=== PATIENT | female | born 1985 | race Caucasian/White ===

== ENCOUNTER 2016-08-04 16:24 | Emergency (ER) | payer OTHER ==
[2016-08-04 16:38] VITALS: BP 150/92
--- NOTE | 2016-08-04 17:16 | PCM.SN ---
- Free Text/Narrative Note: 30 -year-old 001 EGD 01/12/17 estimated gestational age 17 weeks 0 days presented to emergency room complaining of some pelvic pressure and even something coming out of the vagina. No vaginal bleeding or gush of fluid some leaking of fluid no contractions patient known to have twin gestation examination revealed inflamed skin tag at the midline at the introitus just inside the vagina measuring approximately 1 x 1 x 1 cm tender the vaginal exam showed no increased vaginal secretions no evidence of ruptured membranes no hour glassing of membranes cervix is closed and long firm posterior. heart tones 143 and 152 uterus is soft Z3A.17 Twin gestation O30. 042 Pelvic pressure O26.899 Skin tag inflamed L91.8 Pelvic rest Hemorrhoidal cream with steroid (hydrocortisone) applied 3 times a day to 4 times a day Keep appointment later this week for OB visit on Thursday. Pelvic ultrasound ordered to confirm no funneling of the cervix UA with micro- and urine culture ordered Drink at least 2 quarts of water per day Return to ER if any problems or difficulties or change in symptoms ER Dr. Saldaña Will confirm ultrasound report and call if any problems or difficulties
--- NOTE | 2016-08-04 18:46 | US ---
Addendum: Several numerical values are incorrect. Following is the correct values. Twin A: Amniotic fluid: NNEKA 9.87 cm Twin B: NNEKA 9.99 cm Twin A: Head circumference: 13.34 cm - 17 weeks 0 days Abdominal circumference: 11.78 cm - 17 weeks 4 days Femur length: 2.41 cm - 17 weeks 2 days Twin B: Heart rate: 149 BPM Other portions of the dictation remain the same. --- Addendum1 above dictated on [08/07/2016 14:27] by [Ann Monk, George Fine] --- --- Addendum1 above signed on [08/07/2016 14:32] by [Ann Monk Hilton J.] --- --- Original report below dictated on [08/04/2016 18:43] by [Ann Monk Hilton J.] --- --- Original report below signed on [08/04/2016 18:43] by [Ann Monk, George Fine] --- Limited obstetrical ultrasound (multiple gestation) Comparison: Previous obstetrical ultrasound of 06/24/16. Dates: LMP: LMP given as 04/04/16, ESTEPHANIA 01/09/17, gestational age 17 weeks 3 days Current ultrasound: Twin A: ESTEPHANIA 01/10/17, gestational age 17 weeks 2 days Twin B: ESTEPHANIA 01/11/17, gestational age 17 weeks 1 day Earliest ultrasound (06/24/16): Twin A: ESTEPHANIA 01/12/17, gestational age 17 weeks 0 days Twin B: ESTEPHANIA 01/12/17, gestational age 17 weeks 0 days Twin A: presentation: Cephalic and to the maternal right side Placenta: Posterior Amniotic fluid: NNEKA 9.87 cm Twin B: presentation: Cephalic and to the maternal left side Placenta: Posterior Amniotic fluid: NNEKA 9.87 cm There is a membrane appearing to be present between both fetuses which is felt compatible with separate amniotic sacs. Measurements: Twin A: BPD: 3.50 cm - 16 weeks 6 days Head circumference: 13.31 cm - 16 weeks 6 days Abdominal circumference: 11.74 cm - 17 weeks 4 days Femur length: 2.37 cm - 17 weeks 1 day Estimated weight: 190 g (0 lbs. 7 oz.), estimated weight at the 47th percentile for age by current ultrasound Heart rate: 153 BPM Twin B: BPD: 3.50 cm - 16 weeks 6 days Head circumference: 13.31 cm - 16 weeks 6 days Abdominal circumference: 11.74 cm - 17 weeks 4 days Femur length: 2.37 cm - 17 weeks 1 day Estimated weight: 187 g (0 lbs. 7 oz.), estimated weight at the 51st percentile for age by current ultrasound Cervical length: 5.0 cm and closed Impression: 1. Twin both in cephalic presentation. Twins appear to be in separate amniotic sacs. Placenta for both twins is posterior with likely fusion of the placenta as no separation can be seen. 2. Dates as noted above. 3. No complicating process is otherwise appreciated by ultrasound exam. Diagnostic code #3 --- Addendum1 signed ---
== END 2016-08-04 19:00 | disposition home or self-care (01) ==
LOC: JD.ED 16:24
DX: O26.899 Other specified pregnancy related conditions, unspecified trimester (principal); R10.2 Pelvic and perineal pain; O30.042 Twin pregnancy, dichorionic/diamniotic, second trimester; O99.89 Other specified diseases and conditions complicating pregnancy, childbirth and the puerperium; L91.8 Other hypertrophic disorders of the skin; Z3A.17 17 weeks gestation of pregnancy
CPT/HCPCS: 76815; 76815-26; 81001; 87086; 99284-25

== ENCOUNTER 2016-12-18 13:04 | Inpatient (IN) | payer OTHER ==
[2016-12-18] MEDS ORDERED: Nalbuphine 20 MG/1 ML Amp IVPUSH PRN (19:00)
[2016-12-18] MEDS ORDERED: Sodium Chloride 0.9% 10 ML Syringe FLUSH PRN (19:00)
[2016-12-18] MEDS ORDERED: Ondansetron 4 MG/2 ML SDV IVPUSH PRN (19:00)
[2016-12-18] MEDS ORDERED: Insulin Detemir 100 Units/ML 3 ML Pen SUBCUT ONE (20:59)
[2016-12-18] MEDS: Dextrose 5% in Water 1,000 ML IV SCH (21:57)
[2016-12-18] MEDS: Lactated Ringers 1,000 ML IV SCH (21:58)
[2016-12-18] MEDS ORDERED: Insulin Glargine,Human Rec. Analog 100 Units/ML 3 ML Pen**OWN MED SUBCUT ONE (22:00)
[2016-12-18] MEDS: Misoprostol 25 MCG (1/4 of 100 MCG) Tab VAG SCH (23:56)
[2016-12-19] MEDS ORDERED: Lidocaine 1% 50 ML MDV INJECT ONE
[2016-12-19] MEDS: Misoprostol 25 MCG (1/4 of 100 MCG) Tab VAG SCH ×2 (03:04→06:17)
[2016-12-19] MEDS ORDERED: diphenhydrAMINE 50 MG/ML SDV IVPUSH PRN (07:32)
[2016-12-19] MEDS ORDERED: ePHEDrine 50 MG/ML SDV IVPUSH PRN (07:32)
[2016-12-19] MEDS ORDERED: fentaNYL 100 MCG/2 ML SDV EPIDUR PRN (07:32)
[2016-12-19] MEDS ORDERED: Bupivacaine/fentaNYL/NS 100 ML Bag EPIDUR SCH (07:45)
--- NOTE | 2016-12-19 07:46 | PCM.PREANE ---
Preanesthetic Assessment - Procedure Proposed Procedure: MATT - Anesthesia/Transfusion/Family Hx Anesthesia History: Prior Anesthesia Without Reaction Family History of Anesthesia Reaction: No Transfusion History: No Prior Transfusion(s) - Review of Systems General: No Symptoms Pulmonary: No Symptoms Cardiovascular: No Symptoms Gastrointestinal: No Symptoms Neurological: No Symptoms Other: Reports: Diabetes (gestational) - Physical Assessment Pulse: 76 O2 Sat by Pulse Oximetry: 100 Respiratory Rate: 20 Blood Pressure: 137/83 Height: 5 ft 8 in Weight: 124.284 kg ASA Class: 2 Mental Status: Alert & Oriented x3 Airway Class: Mallampati = 1 Dentition: Reports: Normal Dentition Thyro-Mental Finger Breadths: 3 Mouth Opening Finger Breadths: 3 ROM/Head Extension: Full Lungs: Clear to Auscultation, Normal Respiratory Effort Cardiovascular: Regular Rate, Regular Rhythm - Lab Values: Laboratory Last Values WBC 9.43 K/mm3 (3.98-10.04) 12/18/16 21:50 RBC 3.81 M/mm3 (3.98-5.22) L 12/18/16 21:50 Hgb 12.1 gm/L (11.2-15.7) 12/18/16 21:50 Hct 36.5 % (34.1-44.9) 12/18/16 21:50 MCV 95.8 fl (79.4-94.8) H 12/18/16 21:50 MCH 31.8 pg (25.6-32.2) 12/18/16 21:50 MCHC 33.2 g/dl (32.2-35.5) 12/18/16 21:50 RDW Std Deviation 43.6 fL (36.4-46.3) 12/18/16 21:50 Plt Count 223 K/mm3 (182-369) 12/18/16 21:50 MPV 10.4 fl (9.4-12.3) 12/18/16 21:50 POC Glucose 79 mg/dL (70-105) 12/19/16 07:20 Blood Type O POSITIVE 12/18/16 21:50 Gel Antibody Screen Negative 12/18/16 21:50 - Allergies Allergies/Adverse Reactions: Allergies Allergy/AdvReac Type Severity Reaction Status Date / Time Penicillins Allergy Mild Rash Verified 12/18/16 17:19 Sulfa (Sulfonamide Allergy Mild Rash Verified 12/18/16 17:19 Antibiotics) amoxicillin Allergy Rash Verified 12/18/16 17:19 - Acknowledgements Anesthesia Type Planned: Epidural Pt an Appropriate Candidate for the Planned Anesthesia: Yes Alternatives and Risks of Anesthesia Discussed w Pt/Guardian: Yes Pt/Guardian Understands and Agrees with Anesthesia Plan: Yes PreAnesthesia Questionnaire - Past Health History Medical/Surgical History: Denies Medical/Surgical History Cardiovascular History: Reports: None Respiratory History: Reports: None Gastrointestinal History: Reports: GERD (with ) 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 (36 4) Para: 1 Other OB/BYN History: Bartholin Cyst removal x 2 2007, 2011 Endocrine/Metabolic History: Reports: Diabetes, Gestational - Past Surgical History HEENT Surgical History: Reports: Oral Surgery, Tonsillectomy Female Surgical History: Reports: Other (See Below) (barthoid gland removed) Endocrine Surgical History: Reports: Other (See Below) Other Endocrine Surgeries/Procedures: thyomus gland removal - History Comment History Comment: sliding scale insulin - SUBSTANCE USE Smoking Status *Q: Never Smoker Tobacco Use Within Last Twelve Months: No Second Hand Smoke Exposure: No Number of Drinks Per Day: 0 Recreational Drug Use History: No - HOME MEDS Home Medications: Home Meds Vit No.124/Iron/FA [ Vitamin Tablet] 1 each PO DAILY 07/01/15 [ History] Acetaminophen [Tylenol] 650 mg PO Q4H PRN #0 tablet 07/02/15 [Rx] Nitrofurantoin Monohyd/M-Cryst [Macrobid 100 mg Capsule] 100 mg PO BID #20 capsule 12/08/16 [Rx] Loratadine/Pseudoephedrine [Claritin-D 24 Hour Tablet] 1 each PO 12/17/16 [ History] Omeprazole Magnesium [Prilosec Otc] 20 mg PO 12/17/16 [History] - CURRENT (IN HOUSE) MEDS Current Meds: Current Medications Diphenhydramine HCl (Benadryl) 25 mg IVPUSH Q6H PRN PRN Reason: pruritis Ephedrine Sulfate (Ephedrine Sulfate) 5 mg IVPUSH ASDIRECTED PRN PRN Reason: Hypotension Fentanyl (Sublimaze) 100 mcg EPIDUR Q3H PRN PRN Reason: Pain Fentanyl/Bupivacaine HCl (Fentanyl/Bupivacaine/Ns 2 Mcg-0.125% 100 Ml) 100 ml EPIDUR ASDIRECTED ELHAM Dextrose/Water (Dextrose 5% In Water) 1,000 mls @ 100 mls/hr IV ASDIRECTED ELHAM Last Admin: 12/18/16 21:57 Dose: 100 mls/hr Insulin Human Regular 100 unit (/ Sodium Chloride) 100 mls @ 0.5 mls/hr IV TITRATE ELHAM; 0.5 UNIT/HR PRN Reason: Protocol Last Titration: 12/19/16 07:21 Dose: 0 unit/hr, 0 mls/hr Lactated Ringer's (Ringers, Lactated) 1,000 mls @ 50 mls/hr IV ASDIRECTED ELHAM Last Admin: 12/18/16 21:58 Dose: 50 mls/hr Oxytocin 20 unit/ Lactated (Ringer's) 1,002 mls @ 6.01 mls/hr IV TITRATE ELHAM; 2 MUNITS/MIN PRN Reason: Protocol Nalbuphine HCl (Nubain) 10 mg IVPUSH Q2H PRN PRN Reason: Pain (moderate 4-6) Ondansetron HCl (Zofran) 4 mg IVPUSH Q4H PRN PRN Reason: Nausea/Vomiting Sodium Chloride (Saline Flush) 10 ml FLUSH ASDIRECTED PRN PRN Reason: Keep Vein Open Discontinued Medications Oxytocin 20 unit/ Lactated (Ringer's) 1,002 mls @ 500 mls/hr IV ASDIRECTED ONE Stop: 12/18/16 21:00 Insulin Glargine (Lantus Solostar) 12 units SUBCUT ONETIME ONE Stop: 12/18/16 22:01 Last Admin: 12/18/16 22:05 Dose: 12 unit Lidocaine HCl (Xylocaine 1%) 50 ml INJECT ONETIME ONE Stop: 12/19/16 00:01 Misoprostol (Cytotec) 25 mcg VAG Q3H ELHAM Stop: 12/19/16 06:01 Last Admin: 12/19/16 06:17 Dose: 25 mcg
[2016-12-19] MEDS: Lactated Ringers 1,000 ML IV SCH (07:56)
[2016-12-19] MEDS: Dextrose 5% in Water 1,000 ML IV SCH (08:50)
--- NOTE | 2016-12-19 10:18 | PCM.LDHP ---
L&D History of Present Illness - General Date of Service: 12/19/16 Admit Problem/Dx: Patient Status Order with Admit Dx/Problem 12/18/16 19:00 Patient Status [ADT] Routine Admission Diagnosis/Problem Admission Diagnosis/Problem Twin Source of Information: Patient History Limitations: Reports: No Limitations - History of Present Illness Introduction:: 31-year-old 001 ESTEPHANIA 01/12/17 at 36 weeks and 4 days estimated gestational age with history of monochorionic/diamniotic twins both cephalic presentation GBS negative patient admitted for medically indicated induction. I have presents to case to Dr. Lay, Dr. Sellers, Dr. Miller and are in agreement with proceeding with delivery because of the monochorionic diamnionic twins. Patient and aware of relative early term gestation possible breathing problems patient has gestational diabetic on insulin now on insulin drip amniotomy performed at 1008 hrs. with clear fluid cervix 4 cm dilated -1-2 vertex presentation soft posterior 60% efface. Category 1 heart rates before and after amniotomy. Blood type O-positive antibody screen negative hemoglobin hematocrit on 06/24/1712.5/40.3 platelets 288,000 units rubella titer the patient has also had problems with gestational hypertension and 24-hour urine showed 279 mg of protein per 24 hours patient had in the past 48 hours developed severe headache unrelenting and not relieved by hydration and Tylenol. Admitted for medically indicated induction and delivery patient and aware of possibility of for one or both deliveries. Pain Score: 5 Improves with: Reports: None Worsens with: Reports: None Associated Symptoms: Reports: N - Related Data Allergies/Adverse Reactions: Allergies Allergy/AdvReac Type Severity Reaction Status Date / Time Penicillins Allergy Mild Rash Verified 12/18/16 17:19 Sulfa (Sulfonamide Allergy Mild Rash Verified 12/18/16 17:19 Antibiotics) amoxicillin Allergy Rash Verified 12/18/16 17:19 Home Medications: Home Meds Vit No.124/Iron/FA [ Vitamin Tablet] 1 each PO DAILY 07/01/15 [ History] Acetaminophen [Tylenol] 650 mg PO Q4H PRN #0 tablet 07/02/15 [Rx] Nitrofurantoin Monohyd/M-Cryst [Macrobid 100 mg Capsule] 100 mg PO BID #20 capsule 12/08/16 [Rx] Loratadine/Pseudoephedrine [Claritin-D 24 Hour Tablet] 1 each PO 12/17/16 [ History] Omeprazole Magnesium [Prilosec Otc] 20 mg PO 12/17/16 [History] Past Medical History - Past Health History Medical/Surgical History: Denies Medical/Surgical History Cardiovascular History: Reports: None Respiratory History: Reports: None Gastrointestinal History: Reports: GERD (with ) 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 Para: 1 (1001) Other OB/BYN History: Bartholin Cyst removal x 2 2007, 2011 Endocrine/Metabolic History: Reports: Diabetes, Gestational - Past Surgical History HEENT Surgical History: Reports: Oral Surgery, Tonsillectomy Female Surgical History: Reports: Other (See Below) (barthoid gland removed) Endocrine Surgical History: Reports: Other (See Below) Other Endocrine Surgeries/Procedures: thyomus gland removal - History Comment History Comment: sliding scale insulin Social & Family History - Family History Family Medical History: Noncontributory Cardiac: Reports: Other (See Below) Endocrine/Metabolic: Reports: Hypothyroidism - Tobacco Use Smoking Status *Q: Never Smoker Second Hand Smoke Exposure: No - Caffeine Use Caffeine Use: Reports: Coffee - Alcohol Use Number of Drinks Per Day: 0 - Recreational Drug Use Recreational Drug Use: No - Living Situation & Occupation Living situation: Reports: , with Family Occupation: Employed H&P Review of Systems - Review of Systems: Review Of Systems: See Below General: Reports: No Symptoms HEENT: Reports: No Symptoms Pulmonary: Reports: No Symptoms Cardiovascular: Reports: No Symptoms Gastrointestinal: Reports: No Symptoms Genitourinary: Reports: No Symptoms Musculoskeletal: Reports: No Symptoms Skin: Reports: No Symptoms Psychiatric: Reports: No Symptoms Neurological: Reports: No Symptoms Hematologic/Lymphatic: Reports: No Symptoms Immunologic: Reports: No Symptoms L&D Exam - Exam Exam: See Below - Vital Signs Vital Signs: Last Vital Signs Temp Pulse 76 12/19/16 07:46 Resp 20 12/19/16 07:46 BP 137/83 12/19/16 07:46 Pulse Ox 100 12/19/16 07:46 Weight: 274 lb - OB Specific Fundal Height In cm: 44 Contraction Intensity: Moderate Movement: Active Heart Tones: Present Heart Tones per Min: 140 (Twin A) Heart Rate (FHR) Variability: Moderate (6-25 bmp) Presentation: Vertex - Matute Score Matute Score Cervix Position: Posterior Matute Score Consistency: Soft Matute Score Effacement: 51-70% Matute Score Dilation: 3-4 cm Matute Score 's Station: -1 ,0 Matute Score Total: 8 - Exam General: Alert, Oriented HEENT: Conjunctiva Clear, Mucosa Moist & Makena, Posterior Pharynx Clear, TMs Clear, PERRLA Neck: Supple, Trachea Midline Lungs: Clear to Auscultation, Normal Respiratory Effort Cardiovascular: Regular Rate, Regular Rhythm GI/Abdominal Exam: Normal Bowel Sounds, Soft, Non-Tender, No Organomegaly, No Distention, No Abnormal Bruit, No Mass, Pelvis Stable Genitourinary: Normal external exam, Normal bimanual exam, Normal speculum exam Back Exam: Normal Inspection, Full Range of Motion Extremities: Normal Inspection, Normal Range of Motion, Non-Tender, No Pedal Edema, Normal Capillary Refill Skin: Warm, Dry, Intact Neurological: Cranial Nerves Intact, Reflexes Equal Bilateral Psychiatric: Alert, Normal Affect, Normal Mood - Patient Data Lab Results Last 24 hrs: Laboratory Results - last 24 hr 12/18/16 12/18/16 12/18/16 Range/Units 20:50 21:50 21:50 WBC 9.43 (3.98-10.04) K/mm3 RBC 3.81 L (3.98-5.22) M/mm3 Hgb 12.1 (11.2-15.7) gm/L Hct 36.5 (34.1-44.9) % MCV 95.8 H (79.4-94.8) fl MCH 31.8 (25.6-32.2) pg MCHC 33.2 (32.2-35.5) g/dl RDW Std Deviation 43.6 (36.4-46.3) fL Plt Count 223 (182-369) K/mm3 MPV 10.4 (9.4-12.3) fl POC Glucose 98 (70-105) mg/dL Blood Type O POSITIVE Gel Antibody Screen Negative 12/18/16 12/18/16 12/19/16 Range/Units 22:40 23:42 00:39 WBC (3.98-10.04) K/mm3 RBC (3.98-5.22) M/mm3 Hgb (11.2-15.7) gm/L Hct (34.1-44.9) % MCV (79.4-94.8) fl MCH (25.6-32.2) pg MCHC (32.2-35.5) g/dl RDW Std Deviation (36.4-46.3) fL Plt Count (182-369) K/mm3 MPV (9.4-12.3) fl POC Glucose 85 84 89 (70-105) mg/dL Blood Type Gel Antibody Screen 12/19/16 12/19/16 12/19/16 Range/Units 01:48 02:44 04:26 WBC (3.98-10.04) K/mm3 RBC (3.98-5.22) M/mm3 Hgb (11.2-15.7) gm/L Hct (34.1-44.9) % MCV (79.4-94.8) fl MCH (25.6-32.2) pg MCHC (32.2-35.5) g/dl RDW Std Deviation (36.4-46.3) fL Plt Count (182-369) K/mm3 MPV (9.4-12.3) fl POC Glucose 81 84 81 (70-105) mg/dL Blood Type Gel Antibody Screen 12/19/16 12/19/16 12/19/16 Range/Units 05:08 06:13 07:20 WBC (3.98-10.04) K/mm3 RBC (3.98-5.22) M/mm3 Hgb (11.2-15.7) gm/L Hct (34.1-44.9) % MCV (79.4-94.8) fl MCH (25.6-32.2) pg MCHC (32.2-35.5) g/dl RDW Std Deviation (36.4-46.3) fL Plt Count (182-369) K/mm3 MPV (9.4-12.3) fl POC Glucose 81 81 79 (70-105) mg/dL Blood Type Gel Antibody Screen 12/19/16 12/19/16 Range/Units 08:22 09:23 WBC (3.98-10.04) K/mm3 RBC (3.98-5.22) M/mm3 Hgb (11.2-15.7) gm/L Hct (34.1-44.9) % MCV (79.4-94.8) fl MCH (25.6-32.2) pg MCHC (32.2-35.5) g/dl RDW Std Deviation (36.4-46.3) fL Plt Count (182-369) K/mm3 MPV (9.4-12.3) fl POC Glucose 88 87 (70-105) mg/dL Blood Type Gel Antibody Screen Result Diagrams: 12/18/16 21:50 - Problem List (1) 36 weeks gestation of SNOMED Code(s): 72286493 ICD Code: Z3A.36 - 36 WEEKS GESTATION OF Status: Acute Current Visit: No (2) Gestational diabetes mellitus in SNOMED Code(s): 35546528 ICD Code: O24.419 - GESTATIONAL DIABETES MELLITUS IN , UNSP CONTROL Status: Acute Current Visit: No Qualifiers: Gestational diabetes mellitus control: diet-controlled Trimester: third trimester Qualified Code(s): O24.410 - Gestational diabetes mellitus in , diet controlled (3) Gestational hypertension affecting second SNOMED Code(s): 96474338 ICD Code: O13.9 - GESTATIONAL HTN W/O SIGNIFICANT PROTEINURIA, UNSP TRIMESTER ; O09.40 - SUPERVISION OF W GRAND MULTIPARITY, UNSP TRIMESTER Status : Acute Current Visit: No (4) Monochorionic diamniotic twin in third trimester SNOMED Code(s): 653467233 ICD Code: O30.033 - TWIN , MONOCHORIONIC/DIAMNIOTIC, THIRD TRIMESTER Status: Acute Current Visit: No Problem List Initiated/Reviewed/Updated: No Orders Last 24hrs: Active Orders 24 hr Category Date Time Status Patient Status [ADT] Routine ADT 12/18/16 19:00 Active Activity as Tolerated [RC] PFP Care 12/18/16 19:00 Active Blood Glucose Check, Bedside [RC] Q1HR Care 12/18/16 19:00 Active Communication Order [RC] ASDIRECTED Care 12/18/16 19:00 Active Notify Provider [RC] ASDIRECTED Care 12/19/16 07:32 Active Notify Provider [RC] PFP Care 12/18/16 19:00 Active Notify Provider [RC] PRN Care 12/18/16 19:00 Active Peripheral IV Care [RC] . DIRECTED Care 12/18/16 19:00 Active Vital Signs [RC] PER UNIT ROUTINE Care 12/18/16 19:00 Active Clear Liquid Diet [DIET] Diet 12/19/16 Breakfast Active Bupivacaine/fentaNYL/NS [fentaNYL/Bupivacaine/NS 2 MCG- Med 12/19/16 07:45 Active 0.125% 100 ML] 100 ml EPIDUR ASDIRECTED Dextrose 5% in Water 1,000 ml Med 12/18/16 19:00 Active IV ASDIRECTED Insulin Regular, Human [HumuLIN R] 100 unit Med 12/18/16 19:00 Active Sodium Chloride 0.9% [Normal Saline] 99 ml IV TITRATE Lactated Ringers [Ringers, Lactated] 1,000 ml Med 12/18/16 19:00 Active IV ASDIRECTED Nalbuphine [Nubain] Med 12/18/16 19:00 Active 10 mg IVPUSH Q2H PRN Ondansetron [Zofran] Med 12/18/16 19:00 Active 4 mg IVPUSH Q4H PRN Oxytocin [Pitocin] 20 unit Med 12/19/16 09:00 Active Lactated Ringers [Ringers, Lactated] 1,000 ml IV TITRATE Sodium Chloride 0.9% [Saline Flush] Med 12/18/16 19:00 Active 10 ml FLUSH ASDIRECTED PRN diphenhydrAMINE [Benadryl] Med 12/19/16 07:32 Active 25 mg IVPUSH Q6H PRN ePHEDrine [ePHEDrine Sulfate] Med 12/19/16 07:32 Active 5 mg IVPUSH ASDIRECTED PRN fentaNYL [Sublimaze] Med 12/19/16 07:32 Active 100 mcg EPIDUR Q3H PRN Electronic Heart Tones Ext w TOCO [WOMSER] Oth 12/18/16 19:00 Ordered Routine Electronic Heart Tones Internal [WOMSER] Per Unit Oth 12/18/16 19:00 Ordered Routine Peripheral IV Insertion Adult [OM.PC] Routine Oth 12/18/16 19:00 Ordered Resuscitation Status Routine Resus Stat 12/18/16 17:34 Ordered Medication Orders Diphenhydramine HCl (Benadryl) 25 mg IVPUSH Q6H PRN PRN Reason: pruritis Ephedrine Sulfate (Ephedrine Sulfate) 5 mg IVPUSH ASDIRECTED PRN PRN Reason: Hypotension Fentanyl (Sublimaze) 100 mcg EPIDUR Q3H PRN PRN Reason: Pain Last Admin: 12/19/16 08:07 Dose: 100 mcg Fentanyl/Bupivacaine HCl (Fentanyl/Bupivacaine/Ns 2 Mcg-0.125% 100 Ml) 100 ml EPIDUR ASDIRECTED ELHAM Last Admin: 12/19/16 08:06 Dose: 100 ml Dextrose/Water (Dextrose 5% In Water) 1,000 mls @ 100 mls/hr IV ASDIRECTED ELHAM Last Admin: 12/19/16 08:50 Dose: 100 mls/hr Infusion: 12/19/16 07:57 Dose: 100 mls/hr Admin: 12/18/16 21:57 Dose: 100 mls/hr Insulin Human Regular 100 unit (/ Sodium Chloride) 100 mls @ 0.5 mls/hr IV TITRATE ELHAM; 0.5 UNIT/HR PRN Reason: Protocol Last Titration: 12/19/16 09:24 Dose: 0.5 unit/hr, 0.5 mls/hr Titration: 12/19/16 08:24 Dose: 0.5 unit/hr, 0.5 mls/hr Titration: 12/19/16 07:21 Dose: 0 unit/hr, 0 mls/hr Titration: 12/18/16 22:41 Dose: 0.5 unit/hr, 0.5 mls/hr Admin: 12/18/16 21:00 Dose: 0.5 unit/hr, 0.5 mls/hr Lactated Ringer's (Ringers, Lactated) 1,000 mls @ 50 mls/hr IV ASDIRECTED ELHAM Last Infusion: 12/19/16 08:31 Dose: 50 mls/hr Admin: 12/19/16 07:56 Dose: 999 mls/hr Infusion: 12/19/16 07:55 Dose: 50 mls/hr Admin: 12/18/16 21:58 Dose: 50 mls/hr Oxytocin 20 unit/ Lactated (Ringer's) 1,002 mls @ 6.01 mls/hr IV TITRATE ELHAM; 2 MUNITS/MIN PRN Reason: Protocol Last Admin: 12/19/16 10:12 Dose: 1 munits/min, 3 mls/hr Nalbuphine HCl (Nubain) 10 mg IVPUSH Q2H PRN PRN Reason: Pain (moderate 4-6) Ondansetron HCl (Zofran) 4 mg IVPUSH Q4H PRN PRN Reason: Nausea/Vomiting Last Admin: 12/19/16 09:27 Dose: 4 mg Sodium Chloride (Saline Flush) 10 ml FLUSH ASDIRECTED PRN PRN Reason: Keep Vein Open Assessment/Plan Comment:: Admitted for medically indicated induction monochorionic/diamnionic twins
[2016-12-19] MEDS ORDERED: Acetaminophen 325 MG Tab PO ONE (12:19)
--- NOTE | 2016-12-19 12:26 | PCM.SN ---
- Free Text/Narrative Note: Exam at noon by RN cervix 6 cm dilated 80% effaced 0 to -1 station vertex mid position and soft, category 1 heart rates.
--- NOTE | 2016-12-19 13:40 | PCM48HPAN ---
Post Anesthesia Note - EVALUATION WITHIN 48HRS OF ANESTHETIC Vital Signs in Normal Range: Yes Patient Participated in Evaluation: Yes Respiratory Function Stable: Yes Airway Patent: Yes Cardiovascular Function Stable: Yes Hydration Status Stable: Yes Pain Control Satisfactory: Yes Nausea and Vomiting Control Satisfactory: Yes Mental Status Recovered: Yes
--- NOTE | 2016-12-19 14:20 | PCM.DEL ---
L & D Note - General Info Date of Service: 12/19/16 Mother's Due Date: 01/12/17 - Delivery Note Labor: Augmented by ARM, Augmented by Oxytocin Cervical Ripening Method: Misoprostil Delivery Outcome: Livebirth Infant Delivery Method: Spontaneous Vaginal Delivery-Twins Infant Delivery Mode: Spontaneous (Twin A, twin B delivered by vacuum extraction less than 10 seconds in the green outlet Kiwi) Presentation: Vertex Nuchal Cord: Present (Twin a tight nuchal cord unable to reduce over head or shoulders required cutting before delivery of the head.) Prep: Povidone-Iodine (Betadine Anesthesia Type: Epidural Episiotomy Type: None Laceration: 2nd Degree (Midline) Suture type: Other (Monocryl) Suture size: 3-0 (Times one) Placenta: Intact, Spontaneous (Monochorionic/diamniotic at 1332 hrs. intact Eugenio discarded) Cord: 3 Vessels (Twin A and twin B) Estimated Blood Loss: 500 Resuscitation Needed: No : Suctioned, Bulb Syringe, Stimulated, Warmed, [place]wicks Used (Dr. Whitman present and care for twin A and twin B), Warmer Used Provider: Pito Reed Score 1 min: 8 (Twin A & B) Score 5 min: 9 (Twin A & B) Delivery Comments (Free Text/Narrative):: Twin A delivered at 1304 hrs. on Thursday12/19/16 weight 3220 g/7 pounds 1.6 ounces Apgars 8/9 nuchal cord 1 tight Twin B delivered at 1325 hrs. on Thursday12/19/16 weight 3220 g/7 pounds 1.6 ounces Apgars 8/9 vacuum extraction 1 in the green with Kiwi for less than 10 seconds Both weights were exactly the same as noted above. - Patient Data Vitals - Most Recent: Last Vital Signs Temp Pulse 76 12/19/16 07:46 Resp 20 12/19/16 07:46 BP 137/83 12/19/16 07:46 Pulse Ox 100 12/19/16 07:46 Weight - Most Recent: 274 lb Lab Results Last 24 Hours: Laboratory Results - last 24 hr 12/18/16 12/18/16 12/18/16 Range/Units 20:50 21:50 21:50 WBC 9.43 (3.98-10.04) K/mm3 RBC 3.81 L (3.98-5.22) M/mm3 Hgb 12.1 (11.2-15.7) gm/L Hct 36.5 (34.1-44.9) % MCV 95.8 H (79.4-94.8) fl MCH 31.8 (25.6-32.2) pg MCHC 33.2 (32.2-35.5) g/dl RDW Std Deviation 43.6 (36.4-46.3) fL Plt Count 223 (182-369) K/mm3 MPV 10.4 (9.4-12.3) fl POC Glucose 98 (70-105) mg/dL Blood Type O POSITIVE Gel Antibody Screen Negative 12/18/16 12/18/16 12/19/16 Range/Units 22:40 23:42 00:39 WBC (3.98-10.04) K/mm3 RBC (3.98-5.22) M/mm3 Hgb (11.2-15.7) gm/L Hct (34.1-44.9) % MCV (79.4-94.8) fl MCH (25.6-32.2) pg MCHC (32.2-35.5) g/dl RDW Std Deviation (36.4-46.3) fL Plt Count (182-369) K/mm3 MPV (9.4-12.3) fl POC Glucose 85 84 89 (70-105) mg/dL Blood Type Gel Antibody Screen 12/19/16 12/19/16 12/19/16 Range/Units 01:48 02:44 04:26 WBC (3.98-10.04) K/mm3 RBC (3.98-5.22) M/mm3 Hgb (11.2-15.7) gm/L Hct (34.1-44.9) % MCV (79.4-94.8) fl MCH (25.6-32.2) pg MCHC (32.2-35.5) g/dl RDW Std Deviation (36.4-46.3) fL Plt Count (182-369) K/mm3 MPV (9.4-12.3) fl POC Glucose 81 84 81 (70-105) mg/dL Blood Type Gel Antibody Screen 12/19/16 12/19/16 12/19/16 Range/Units 05:08 06:13 07:20 WBC (3.98-10.04) K/mm3 RBC (3.98-5.22) M/mm3 Hgb (11.2-15.7) gm/L Hct (34.1-44.9) % MCV (79.4-94.8) fl MCH (25.6-32.2) pg MCHC (32.2-35.5) g/dl RDW Std Deviation (36.4-46.3) fL Plt Count (182-369) K/mm3 MPV (9.4-12.3) fl POC Glucose 81 81 79 (70-105) mg/dL Blood Type Gel Antibody Screen 12/19/16 12/19/16 12/19/16 Range/Units 08:22 09:23 10:30 WBC (3.98-10.04) K/mm3 RBC (3.98-5.22) M/mm3 Hgb (11.2-15.7) gm/L Hct (34.1-44.9) % MCV (79.4-94.8) fl MCH (25.6-32.2) pg MCHC (32.2-35.5) g/dl RDW Std Deviation (36.4-46.3) fL Plt Count (182-369) K/mm3 MPV (9.4-12.3) fl POC Glucose 88 87 100 (70-105) mg/dL Blood Type Gel Antibody Screen 12/19/16 12/19/16 Range/Units 11:15 12:16 WBC (3.98-10.04) K/mm3 RBC (3.98-5.22) M/mm3 Hgb (11.2-15.7) gm/L Hct (34.1-44.9) % MCV (79.4-94.8) fl MCH (25.6-32.2) pg MCHC (32.2-35.5) g/dl RDW Std Deviation (36.4-46.3) fL Plt Count (182-369) K/mm3 MPV (9.4-12.3) fl POC Glucose 120 H 94 (70-105) mg/dL Blood Type Gel Antibody Screen Med Orders - Current: Current Medications Diphenhydramine HCl (Benadryl) 25 mg IVPUSH Q6H PRN PRN Reason: pruritis Ephedrine Sulfate (Ephedrine Sulfate) 5 mg IVPUSH ASDIRECTED PRN PRN Reason: Hypotension Fentanyl (Sublimaze) 100 mcg EPIDUR Q3H PRN PRN Reason: Pain Last Admin: 12/19/16 08:07 Dose: 100 mcg Fentanyl/Bupivacaine HCl (Fentanyl/Bupivacaine/Ns 2 Mcg-0.125% 100 Ml) 100 ml EPIDUR ASDIRECTED ELHAM Last Admin: 12/19/16 08:06 Dose: 100 ml Dextrose/Water (Dextrose 5% In Water) 1,000 mls @ 100 mls/hr IV ASDIRECTED ELHAM Last Admin: 12/19/16 08:50 Dose: 100 mls/hr Insulin Human Regular 100 unit (/ Sodium Chloride) 100 mls @ 0.5 mls/hr IV TITRATE ELHAM; 0.5 UNIT/HR PRN Reason: Protocol Last Titration: 12/19/16 12:17 Dose: 0.5 unit/hr, 0.5 mls/hr Lactated Ringer's (Ringers, Lactated) 1,000 mls @ 50 mls/hr IV ASDIRECTED ELHAM Last Infusion: 12/19/16 08:31 Dose: 50 mls/hr Oxytocin 20 unit/ Lactated (Ringer's) 1,002 mls @ 6.01 mls/hr IV TITRATE ELHAM; 2 MUNITS/MIN PRN Reason: Protocol Last Titration: 12/19/16 12:18 Dose: 3 munits/min, 9.01 mls/hr Nalbuphine HCl (Nubain) 10 mg IVPUSH Q2H PRN PRN Reason: Pain (moderate 4-6) Ondansetron HCl (Zofran) 4 mg IVPUSH Q4H PRN PRN Reason: Nausea/Vomiting Last Admin: 12/19/16 09:27 Dose: 4 mg Sodium Chloride (Saline Flush) 10 ml FLUSH ASDIRECTED PRN PRN Reason: Keep Vein Open Discontinued Medications Acetaminophen (Tylenol) 650 mg PO NOW ONE Stop: 12/19/16 12:20 Last Admin: 12/19/16 12:36 Dose: 650 mg Oxytocin 20 unit/ Lactated (Ringer's) 1,002 mls @ 500 mls/hr IV ASDIRECTED ONE Stop: 12/18/16 21:00 Insulin Glargine (Lantus Solostar) 12 units SUBCUT ONETIME ONE Stop: 12/18/16 22:01 Last Admin: 12/18/16 22:05 Dose: 12 unit Lidocaine HCl (Xylocaine 1%) 50 ml INJECT ONETIME ONE Stop: 12/19/16 00:01 Misoprostol (Cytotec) 25 mcg VAG Q3H ELHAM Stop: 12/19/16 06:01 Last Admin: 12/19/16 06:17 Dose: 25 mcg - Problem List & Annotations (1) 36 weeks gestation of SNOMED Code(s): 84535623 Code(s): Z3A.36 - 36 WEEKS GESTATION OF Status: Acute Current Visit: No (2) Gestational diabetes mellitus in SNOMED Code(s): 61576831 Code(s): O24.419 - GESTATIONAL DIABETES MELLITUS IN , UNSP CONTROL Status: Acute Current Visit: No Qualifiers: Gestational diabetes mellitus control: diet-controlled Trimester: third trimester Qualified Code(s): O24.410 - Gestational diabetes mellitus in , diet controlled (3) Gestational hypertension affecting second SNOMED Code(s): 60246205 Code(s): O13.9 - GESTATIONAL HTN W/O SIGNIFICANT PROTEINURIA, UNSP TRIMESTER ; O09.40 - SUPERVISION OF W GRAND MULTIPARITY, UNSP TRIMESTER Status : Acute Current Visit: No (4) Monochorionic diamniotic twin in third trimester SNOMED Code(s): 383632274 Code(s): O30.033 - TWIN , MONOCHORIONIC/DIAMNIOTIC, THIRD TRIMESTER Status: Acute Current Visit: No (5) Nuchal cord with compression, delivered, current hospitalization SNOMED Code(s): 040538889 Code(s): O69.1XX0 - LABOR AND DELIVERY COMP BY CORD AROUND NECK, W COMPRSN, UNSP Status: Acute Current Visit: Yes - Problem List Review Problem List Initiated/Reviewed/Updated: No - My Orders Last 24 Hours: My Active Orders 12/18/16 17:34 Resuscitation Status Routine 12/18/16 19:00 Patient Status [ADT] Routine Activity as Tolerated [RC] PFP Blood Glucose Check, Bedside [RC] Q1HR Communication Order [RC] ASDIRECTED Notify Provider [RC] PFP Notify Provider [RC] PRN Peripheral IV Care [RC] . DIRECTED Vital Signs [RC] PER UNIT ROUTINE Dextrose 5% in Water 1,000 ml IV ASDIRECTED Insulin Regular, Human [HumuLIN R] 100 unit Sodium Chloride 0.9% [Normal Saline] 99 ml IV TITRATE Lactated Ringers [Ringers, Lactated] 1,000 ml IV ASDIRECTED Nalbuphine [Nubain] 10 mg IVPUSH Q2H PRN Ondansetron [Zofran] 4 mg IVPUSH Q4H PRN Sodium Chloride 0.9% [Saline Flush] 10 ml FLUSH ASDIRECTED PRN Electronic Heart Tones Ext w TOCO [WOMSER] Routine Electronic Heart Tones Internal [WOMSER] Per Unit Routine Peripheral IV Insertion Adult [OM.PC] Routine 12/19/16 09:00 Oxytocin [Pitocin] 20 unit Lactated Ringers [Ringers, Lactated] 1,000 ml IV TITRATE 12/19/16 Breakfast Clear Liquid Diet [DIET] - Plan Plan:: Admitted for medically indicated induction monochorionic/diamnionic twins
[2016-12-19] MEDS ORDERED: Acetaminophen 325 MG Tab PO PRN (14:38)
[2016-12-19] MEDS ORDERED: Benzocaine/Menthol 20%-0.5% Spray 56 GM Canister TOP PRN (14:38)
[2016-12-19] MEDS ORDERED: Loratadine 10 MG Tab PO PRN (14:38)
[2016-12-19] MEDS ORDERED: Lanolin 100% Cream 7 GM Tube TOP PRN (14:38)
[2016-12-19] MEDS ORDERED: Witch Hazel Medicated Pads 100/Jar TOP PRN (14:38)
[2016-12-19] MEDS ORDERED: Pseudoephedrine 30 MG Tab PO PRN (14:52)
[2016-12-19] MEDS: Ibuprofen 600 MG Tab PO PRN (18:01)
[2016-12-19] MEDS: Acetaminophen/oxyCODONE 325-5 MG Tab PO PRN (21:29)
[2016-12-19] MEDS ORDERED: Bupivacaine 0.25% 10 ML SDV ONE (22:22)
[2016-12-20] MEDS: Ibuprofen 600 MG Tab PO PRN ×3 (00:14→15:20)
[2016-12-20] MEDS: Acetaminophen/oxyCODONE 325-5 MG Tab PO PRN ×3 (02:27→20:21)
[2016-12-20] MEDS: Prenatal Multivitamin with Calcium/Folic Acid/Iron Tab PO SCH (08:31)
--- NOTE | 2016-12-20 08:59 | PCM.SN ---
- Free Text/Narrative Note: day 1 Afebrile, breast-feeding, no heavy vaginal bleeding, uterus involuting normally , no leg cramping. We'll discontinue routine blood glucose checks every 4 hours. Continue consistent carbohydrate diet. Probably discharge tomorrow.
[2016-12-20] MEDS: Docusate Sodium 100 MG Cap PO PRN (10:33)
[2016-12-21] MEDS: Docusate Sodium 100 MG Cap PO PRN (01:27)
[2016-12-21] MEDS: Acetaminophen/oxyCODONE 325-5 MG Tab PO PRN (04:42)
--- NOTE | 2016-12-21 10:18 | PCM.DCSUM1 ---
Discharge Summary - Hospital Course Free Text/Narrative:: [facility] LIVE L/D Delivery Note Patient Name: AL MAC Date of : 87 Patient Status: Inpatient Attending Provider: Pito Reed Date: 12/19/16 14:14 Initialization Date: 12/19/16 14:14 L & D Note - General Info Date of Service: 12/19/16 Mother's Due Date: 01/12/17 - Delivery Note Labor: Augmented by ARM, Augmented by Oxytocin Cervical Ripening Method: Misoprostil Delivery Outcome: Livebirth Infant Delivery Method: Spontaneous Vaginal Delivery-Twins Infant Delivery Mode: Spontaneous (Twin A, twin B delivered by vacuum extraction less than 10 seconds in the green outlet [facility]) Presentation: Vertex Nuchal Cord: Present (Twin a tight nuchal cord unable to reduce over head or shoulders required cutting before delivery of the head.) Prep: Povidone-Iodine (Betadine Anesthesia Type: Epidural Episiotomy Type: None Laceration: 2nd Degree (Midline) Suture type: Other (Monocryl) Suture size: 3-0 (Times one) Placenta: Intact, Spontaneous (Monochorionic/diamniotic at 1332 hrs. intact Eugenio discarded) Cord: 3 Vessels (Twin A and twin B) Estimated Blood Loss: 500 Resuscitation Needed: No : Suctioned, Bulb Syringe, Stimulated, Warmed, [place] Used (Dr. Whitman present and care for twin A and twin B), Warmer Used Provider: Pito Reed Score 1 min: 8 (Twin A & B) Score 5 min: 9 (Twin A & B) Delivery Comments (Free Text/Narrative):: Twin A delivered at 1304 hrs. on Thursday12/19/16 weight 3220 g/7 pounds 1.6 ounces Apgars 8/9 nuchal cord 1 tight Twin B delivered at 1325 hrs. on Thursday12/19/16 weight 3220 g/7 pounds 1.6 ounces Apgars 8/9 vacuum extraction 1 in the green with Kiwi for less than 10 seconds Both weights were exactly the same as noted above. - Patient Data Vitals - Most Recent: Last Vital Signs Temp Pulse 76 12/19/16 07:46 Resp 20 12/19/16 07:46 BP 137/83 12/19/16 07:46 Pulse Ox 100 12/19/16 07:46 Weight - Most Recent: 274 lb Lab Results Last 24 Hours: Laboratory Results - last 24 hr 12/18/16 12/18/16 12/18/16 Range/Units 20:50 21:50 21:50 WBC 9.43 (3.98-10.04) K/mm3 RBC 3.81 L (3.98-5.22) M/mm3 Hgb 12.1 (11.2-15.7) gm/L Hct 36.5 (34.1-44.9) % MCV 95.8 H (79.4-94.8) fl MCH 31.8 (25.6-32.2) pg MCHC 33.2 (32.2-35.5) g/dl RDW Std Deviation 43.6 (36.4-46.3) fL Plt Count 223 (182-369) K/mm3 MPV 10.4 (9.4-12.3) fl POC Glucose 98 (70-105) mg/dL Blood Type O POSITIVE Gel Antibody Screen Negative 12/18/16 12/18/16 12/19/16 Range/Units 22:40 23:42 00:39 WBC (3.98-10.04) K/mm3 RBC (3.98-5.22) M/mm3 Hgb (11.2-15.7) gm/L Hct (34.1-44.9) % MCV (79.4-94.8) fl MCH (25.6-32.2) pg MCHC (32.2-35.5) g/dl RDW Std Deviation (36.4-46.3) fL Plt Count (182-369) K/mm3 MPV (9.4-12.3) fl POC Glucose 85 84 89 (70-105) mg/dL Blood Type Gel Antibody Screen 12/19/16 12/19/16 12/19/16 Range/Units 01:48 02:44 04:26 WBC (3.98-10.04) K/mm3 RBC (3.98-5.22) M/mm3 Hgb (11.2-15.7) gm/L Hct (34.1-44.9) % MCV (79.4-94.8) fl MCH (25.6-32.2) pg MCHC (32.2-35.5) g/dl RDW Std Deviation (36.4-46.3) fL Plt Count (182-369) K/mm3 MPV (9.4-12.3) fl POC Glucose 81 84 81 (70-105) mg/dL Blood Type Gel Antibody Screen 12/19/16 12/19/16 12/19/16 Range/Units 05:08 06:13 07:20 WBC (3.98-10.04) K/mm3 RBC (3.98-5.22) M/mm3 Hgb (11.2-15.7) gm/L Hct (34.1-44.9) % MCV (79.4-94.8) fl MCH (25.6-32.2) pg MCHC (32.2-35.5) g/dl RDW Std Deviation (36.4-46.3) fL Plt Count (182-369) K/mm3 MPV (9.4-12.3) fl POC Glucose 81 81 79 (70-105) mg/dL Blood Type Gel Antibody Screen 12/19/16 12/19/16 12/19/16 Range/Units 08:22 09:23 10:30 WBC (3.98-10.04) K/mm3 RBC (3.98-5.22) M/mm3 Hgb (11.2-15.7) gm/L Hct (34.1-44.9) % MCV (79.4-94.8) fl MCH (25.6-32.2) pg MCHC (32.2-35.5) g/dl RDW Std Deviation (36.4-46.3) fL Plt Count (182-369) K/mm3 MPV (9.4-12.3) fl POC Glucose 88 87 100 (70-105) mg/dL Blood Type Gel Antibody Screen 12/19/16 12/19/16 Range/Units 11:15 12:16 WBC (3.98-10.04) K/mm3 RBC (3.98-5.22) M/mm3 Hgb (11.2-15.7) gm/L Hct (34.1-44.9) % MCV (79.4-94.8) fl MCH (25.6-32.2) pg MCHC (32.2-35.5) g/dl RDW Std Deviation (36.4-46.3) fL Plt Count (182-369) K/mm3 MPV (9.4-12.3) fl POC Glucose 120 H 94 (70-105) mg/dL Blood Type Gel Antibody Screen Med Orders - Current: Current Medications Diphenhydramine HCl (Benadryl) 25 mg IVPUSH Q6H PRN PRN Reason: pruritis Ephedrine Sulfate (Ephedrine Sulfate) 5 mg IVPUSH ASDIRECTED PRN PRN Reason: Hypotension Fentanyl (Sublimaze) 100 mcg EPIDUR Q3H PRN PRN Reason: Pain Last Admin: 12/19/16 08:07 Dose: 100 mcg Fentanyl/Bupivacaine HCl (Fentanyl/Bupivacaine/Ns 2 Mcg-0.125% 100 Ml) 100 ml EPIDUR ASDIRECTED ELHAM Last Admin: 12/19/16 08:06 Dose: 100 ml Dextrose/Water (Dextrose 5% In Water) 1,000 mls @ 100 mls/hr IV ASDIRECTED ELHAM Last Admin: 12/19/16 08:50 Dose: 100 mls/hr Insulin Human Regular 100 unit (/ Sodium Chloride) 100 mls @ 0.5 mls/hr IV TITRATE ELHAM; 0.5 UNIT/HR PRN Reason: Protocol Last Titration: 12/19/16 12:17 Dose: 0.5 unit/hr, 0.5 mls/hr Lactated Ringer's (Ringers, Lactated) 1,000 mls @ 50 mls/hr IV ASDIRECTED ELHAM Last Infusion: 12/19/16 08:31 Dose: 50 mls/hr Oxytocin 20 unit/ Lactated (Ringer's) 1,002 mls @ 6.01 mls/hr IV TITRATE ELHAM; 2 MUNITS/MIN PRN Reason: Protocol Last Titration: 12/19/16 12:18 Dose: 3 munits/min, 9.01 mls/hr Nalbuphine HCl (Nubain) 10 mg IVPUSH Q2H PRN PRN Reason: Pain (moderate 4-6) Ondansetron HCl (Zofran) 4 mg IVPUSH Q4H PRN PRN Reason: Nausea/Vomiting Last Admin: 12/19/16 09:27 Dose: 4 mg Sodium Chloride (Saline Flush) 10 ml FLUSH ASDIRECTED PRN PRN Reason: Keep Vein Open Discontinued Medications Acetaminophen (Tylenol) 650 mg PO NOW ONE Stop: 12/19/16 12:20 Last Admin: 12/19/16 12:36 Dose: 650 mg Oxytocin 20 unit/ Lactated (Ringer's) 1,002 mls @ 500 mls/hr IV ASDIRECTED ONE Stop: 12/18/16 21:00 Insulin Glargine (Lantus Solostar) 12 units SUBCUT ONETIME ONE Stop: 12/18/16 22:01 Last Admin: 12/18/16 22:05 Dose: 12 unit Lidocaine HCl (Xylocaine 1%) 50 ml INJECT ONETIME ONE Stop: 12/19/16 00:01 Misoprostol (Cytotec) 25 mcg VAG Q3H ELHAM Stop: 12/19/16 06:01 Last Admin: 12/19/16 06:17 Dose: 25 mcg - Problem List & Annotations (1) 36 weeks gestation of SNOMED Code(s): 94507831 Code(s): Z3A.36 - 36 WEEKS GESTATION OF Status: Acute Current Visit: No (2) Gestational diabetes mellitus in SNOMED Code(s): 08919751 Code(s): O24.419 - GESTATIONAL DIABETES MELLITUS IN , UNSP CONTROL Status: Acute Current Visit: No Qualifiers: Gestational diabetes mellitus control: diet-controlled Trimester: third trimester Qualified Code(s): O24.410 - Gestational diabetes mellitus in , diet controlled (3) Gestational hypertension affecting second SNOMED Code(s): 93800959 Code(s): O13.9 - GESTATIONAL HTN W/O SIGNIFICANT PROTEINURIA, UNSP TRIMESTER ; O09.40 - SUPERVISION OF W GRAND MULTIPARITY, UNSP TRIMESTER Status : Acute Current Visit: No (4) Monochorionic diamniotic twin in third trimester SNOMED Code(s): 458123911 Code(s): O30.033 - TWIN , MONOCHORIONIC/DIAMNIOTIC, THIRD TRIMESTER Status: Acute Current Visit: No (5) Nuchal cord with compression, delivered, current hospitalization SNOMED Code(s): 572360498 Code(s): O69.1XX0 - LABOR AND DELIVERY COMP BY CORD AROUND NECK, W COMPRSN, UNSP Status: Acute Current Visit: Yes - Problem List Review Problem List Initiated/Reviewed/Updated: No - My Orders Last 24 Hours: My Active Orders 12/18/16 17:34 Resuscitation Status Routine 12/18/16 19:00 Patient Status [ADT] Routine Activity as Tolerated [RC] PFP Blood Glucose Check, Bedside [RC] Q1HR Communication Order [RC] ASDIRECTED Notify Provider [RC] PFP Notify Provider [RC] PRN Peripheral IV Care [RC] . DIRECTED Vital Signs [RC] PER UNIT ROUTINE Dextrose 5% in Water 1,000 ml IV ASDIRECTED Insulin Regular, Human [HumuLIN R] 100 unit Sodium Chloride 0.9% [Normal Saline] 99 ml IV TITRATE Lactated Ringers [Ringers, Lactated] 1,000 ml IV ASDIRECTED Nalbuphine [Nubain] 10 mg IVPUSH Q2H PRN Ondansetron [Zofran] 4 mg IVPUSH Q4H PRN Sodium Chloride 0.9% [Saline Flush] 10 ml FLUSH ASDIRECTED PRN Electronic Heart Tones Ext w TOCO [WOMSER] Routine Electronic Heart Tones Internal [WOMSER] Per Unit Routine Peripheral IV Insertion Adult [OM.PC] Routine 12/19/16 09:00 Oxytocin [Pitocin] 20 unit Lactated Ringers [Ringers, Lactated] 1,000 ml IV TITRATE 12/19/16 Breakfast Clear Liquid Diet [DIET] - Plan Plan:: Admitted for medically indicated induction monochorionic/diamnionic twins HPI Initial Comments: [facility] LIVE L/D Delivery Note Patient Name: AL MAC Date of : 87 Patient Status: Inpatient Attending Provider: Pito Reed Date: 12/19/16 14:14 Initialization Date: 12/19/16 14:14 L & D Note - General Info Date of Service: 12/19/16 Mother's Due Date: 01/12/17 - Delivery Note Labor: Augmented by ARM, Augmented by Oxytocin Cervical Ripening Method: Misoprostil Delivery Outcome: Livebirth Infant Delivery Method: Spontaneous Vaginal Delivery-Twins Infant Delivery Mode: Spontaneous (Twin A, twin B delivered by vacuum extraction less than 10 seconds in the green outlet [place]) Presentation: Vertex Nuchal Cord: Present (Twin a tight nuchal cord unable to reduce over head or shoulders required cutting before delivery of the head.) Prep: Povidone-Iodine (Betadine Anesthesia Type: Epidural Episiotomy Type: None Laceration: 2nd Degree (Midline) Suture type: Other (Monocryl) Suture size: 3-0 (Times one) Placenta: Intact, Spontaneous (Monochorionic/diamniotic at 1332 hrs. intact Eugenio discarded) Cord: 3 Vessels (Twin A and twin B) Estimated Blood Loss: 500 Resuscitation Needed: No : Suctioned, Bulb Syringe, Stimulated, Warmed, [place] Used (Dr. Whitman present and care for twin A and twin B), Warmer Used Provider: Pito Reed Score 1 min: 8 (Twin A & B) Score 5 min: 9 (Twin A & B) Delivery Comments (Free Text/Narrative):: Twin A delivered at 1304 hrs. on Thursday12/19/16 weight 3220 g/7 pounds 1.6 ounces Apgars 8/9 nuchal cord 1 tight Twin B delivered at 1325 hrs. on Thursday12/19/16 weight 3220 g/7 pounds 1.6 ounces Apgars 8/9 vacuum extraction 1 in the green with Kiwi for less than 10 seconds Both weights were exactly the same as noted above. - Patient Data Vitals - Most Recent: Last Vital Signs Temp Pulse 76 12/19/16 07:46 Resp 20 12/19/16 07:46 BP 137/83 12/19/16 07:46 Pulse Ox 100 12/19/16 07:46 Weight - Most Recent: 274 lb Lab Results Last 24 Hours: Laboratory Results - last 24 hr 12/18/16 12/18/16 12/18/16 Range/Units 20:50 21:50 21:50 WBC 9.43 (3.98-10.04) K/mm3 RBC 3.81 L (3.98-5.22) M/mm3 Hgb 12.1 (11.2-15.7) gm/L Hct 36.5 (34.1-44.9) % MCV 95.8 H (79.4-94.8) fl MCH 31.8 (25.6-32.2) pg MCHC 33.2 (32.2-35.5) g/dl RDW Std Deviation 43.6 (36.4-46.3) fL Plt Count 223 (182-369) K/mm3 MPV 10.4 (9.4-12.3) fl POC Glucose 98 (70-105) mg/dL Blood Type O POSITIVE Gel Antibody Screen Negative 12/18/16 12/18/16 12/19/16 Range/Units 22:40 23:42 00:39 WBC (3.98-10.04) K/mm3 RBC (3.98-5.22) M/mm3 Hgb (11.2-15.7) gm/L Hct (34.1-44.9) % MCV (79.4-94.8) fl MCH (25.6-32.2) pg MCHC (32.2-35.5) g/dl RDW Std Deviation (36.4-46.3) fL Plt Count (182-369) K/mm3 MPV (9.4-12.3) fl POC Glucose 85 84 89 (70-105) mg/dL Blood Type Gel Antibody Screen 12/19/16 12/19/16 12/19/16 Range/Units 01:48 02:44 04:26 WBC (3.98-10.04) K/mm3 RBC (3.98-5.22) M/mm3 Hgb (11.2-15.7) gm/L Hct (34.1-44.9) % MCV (79.4-94.8) fl MCH (25.6-32.2) pg MCHC (32.2-35.5) g/dl RDW Std Deviation (36.4-46.3) fL Plt Count (182-369) K/mm3 MPV (9.4-12.3) fl POC Glucose 81 84 81 (70-105) mg/dL Blood Type Gel Antibody Screen 12/19/16 12/19/16 12/19/16 Range/Units 05:08 06:13 07:20 WBC (3.98-10.04) K/mm3 RBC (3.98-5.22) M/mm3 Hgb (11.2-15.7) gm/L Hct (34.1-44.9) % MCV (79.4-94.8) fl MCH (25.6-32.2) pg MCHC (32.2-35.5) g/dl RDW Std Deviation (36.4-46.3) fL Plt Count (182-369) K/mm3 MPV (9.4-12.3) fl POC Glucose 81 81 79 (70-105) mg/dL Blood Type Gel Antibody Screen 12/19/16 12/19/16 12/19/16 Range/Units 08:22 09:23 10:30 WBC (3.98-10.04) K/mm3 RBC (3.98-5.22) M/mm3 Hgb (11.2-15.7) gm/L Hct (34.1-44.9) % MCV (79.4-94.8) fl MCH (25.6-32.2) pg MCHC (32.2-35.5) g/dl RDW Std Deviation (36.4-46.3) fL Plt Count (182-369) K/mm3 MPV (9.4-12.3) fl POC Glucose 88 87 100 (70-105) mg/dL Blood Type Gel Antibody Screen 12/19/16 12/19/16 Range/Units 11:15 12:16 WBC (3.98-10.04) K/mm3 RBC (3.98-5.22) M/mm3 Hgb (11.2-15.7) gm/L Hct (34.1-44.9) % MCV (79.4-94.8) fl MCH (25.6-32.2) pg MCHC (32.2-35.5) g/dl RDW Std Deviation (36.4-46.3) fL Plt Count (182-369) K/mm3 MPV (9.4-12.3) fl POC Glucose 120 H 94 (70-105) mg/dL Blood Type Gel Antibody Screen Med Orders - Current: Current Medications Diphenhydramine HCl (Benadryl) 25 mg IVPUSH Q6H PRN PRN Reason: pruritis Ephedrine Sulfate (Ephedrine Sulfate) 5 mg IVPUSH ASDIRECTED PRN PRN Reason: Hypotension Fentanyl (Sublimaze) 100 mcg EPIDUR Q3H PRN PRN Reason: Pain Last Admin: 12/19/16 08:07 Dose: 100 mcg Fentanyl/Bupivacaine HCl (Fentanyl/Bupivacaine/Ns 2 Mcg-0.125% 100 Ml) 100 ml EPIDUR ASDIRECTED ELHAM Last Admin: 12/19/16 08:06 Dose: 100 ml Dextrose/Water (Dextrose 5% In Water) 1,000 mls @ 100 mls/hr IV ASDIRECTED ELHAM Last Admin: 12/19/16 08:50 Dose: 100 mls/hr Insulin Human Regular 100 unit (/ Sodium Chloride) 100 mls @ 0.5 mls/hr IV TITRATE ELHAM; 0.5 UNIT/HR PRN Reason: Protocol Last Titration: 12/19/16 12:17 Dose: 0.5 unit/hr, 0.5 mls/hr Lactated Ringer's (Ringers, Lactated) 1,000 mls @ 50 mls/hr IV ASDIRECTED ELHAM Last Infusion: 12/19/16 08:31 Dose: 50 mls/hr Oxytocin 20 unit/ Lactated (Ringer's) 1,002 mls @ 6.01 mls/hr IV TITRATE ELHAM; 2 MUNITS/MIN PRN Reason: Protocol Last Titration: 12/19/16 12:18 Dose: 3 munits/min, 9.01 mls/hr Nalbuphine HCl (Nubain) 10 mg IVPUSH Q2H PRN PRN Reason: Pain (moderate 4-6) Ondansetron HCl (Zofran) 4 mg IVPUSH Q4H PRN PRN Reason: Nausea/Vomiting Last Admin: 12/19/16 09:27 Dose: 4 mg Sodium Chloride (Saline Flush) 10 ml FLUSH ASDIRECTED PRN PRN Reason: Keep Vein Open Discontinued Medications Acetaminophen (Tylenol) 650 mg PO NOW ONE Stop: 12/19/16 12:20 Last Admin: 12/19/16 12:36 Dose: 650 mg Oxytocin 20 unit/ Lactated (Ringer's) 1,002 mls @ 500 mls/hr IV ASDIRECTED ONE Stop: 12/18/16 21:00 Insulin Glargine (Lantus Solostar) 12 units SUBCUT ONETIME ONE Stop: 12/18/16 22:01 Last Admin: 12/18/16 22:05 Dose: 12 unit Lidocaine HCl (Xylocaine 1%) 50 ml INJECT ONETIME ONE Stop: 12/19/16 00:01 Misoprostol (Cytotec) 25 mcg VAG Q3H ELHAM Stop: 12/19/16 06:01 Last Admin: 12/19/16 06:17 Dose: 25 mcg - Problem List & Annotations (1) 36 weeks gestation of SNOMED Code(s): 46631243 Code(s): Z3A.36 - 36 WEEKS GESTATION OF Status: Acute Current Visit: No (2) Gestational diabetes mellitus in SNOMED Code(s): 66979402 Code(s): O24.419 - GESTATIONAL DIABETES MELLITUS IN , UNSP CONTROL Status: Acute Current Visit: No Qualifiers: Gestational diabetes mellitus control: diet-controlled Trimester: third trimester Qualified Code(s): O24.410 - Gestational diabetes mellitus in , diet controlled (3) Gestational hypertension affecting second SNOMED Code(s): 03584932 Code(s): O13.9 - GESTATIONAL HTN W/O SIGNIFICANT PROTEINURIA, UNSP TRIMESTER ; O09.40 - SUPERVISION OF W GRAND MULTIPARITY, UNSP TRIMESTER Status : Acute Current Visit: No (4) Monochorionic diamniotic twin in third trimester SNOMED Code(s): 356914092 Code(s): O30.033 - TWIN , MONOCHORIONIC/DIAMNIOTIC, THIRD TRIMESTER Status: Acute Current Visit: No (5) Nuchal cord with compression, delivered, current hospitalization SNOMED Code(s): 767173995 Code(s): O69.1XX0 - LABOR AND DELIVERY COMP BY CORD AROUND NECK, W COMPRSN, UNSP Status: Acute Current Visit: Yes - Problem List Review Problem List Initiated/Reviewed/Updated: No - My Orders Last 24 Hours: My Active Orders 12/18/16 17:34 Resuscitation Status Routine 12/18/16 19:00 Patient Status [ADT] Routine Activity as Tolerated [RC] PFP Blood Glucose Check, Bedside [RC] Q1HR Communication Order [RC] ASDIRECTED Notify Provider [RC] PFP Notify Provider [RC] PRN Peripheral IV Care [RC] . DIRECTED Vital Signs [RC] PER UNIT ROUTINE Dextrose 5% in Water 1,000 ml IV ASDIRECTED Insulin Regular, Human [HumuLIN R] 100 unit Sodium Chloride 0.9% [Normal Saline] 99 ml IV TITRATE Lactated Ringers [Ringers, Lactated] 1,000 ml IV ASDIRECTED Nalbuphine [Nubain] 10 mg IVPUSH Q2H PRN Ondansetron [Zofran] 4 mg IVPUSH Q4H PRN Sodium Chloride 0.9% [Saline Flush] 10 ml FLUSH ASDIRECTED PRN Electronic Heart Tones Ext w TOCO [WOMSER] Routine Electronic Heart Tones Internal [WOMSER] Per Unit Routine Peripheral IV Insertion Adult [OM.PC] Routine 12/19/16 09:00 Oxytocin [Pitocin] 20 unit Lactated Ringers [Ringers, Lactated] 1,000 ml IV TITRATE 12/19/16 Breakfast Clear Liquid Diet [DIET] - Plan Plan:: Admitted for medically indicated induction monochorionic/diamnionic twins Brief History: [facility] LIVE . L/D Delivery Note. [facility]: [id number]. Date of : Patient Status: Inpatient. Attending Provider: Pito Reed Number: [id number]. Date: 12/19/16 14:14Initialization Date: 12/19/16 14:14. L & D Note. - General Info. Date of Service: 12/19/16. Mother's Due Date: 01/12/17. - Delivery Note. Labor: Augmented by ARM, Augmented by Oxytocin. Cervical Ripening Method: Misoprostil. Delivery Outcome: Livebirth. Delivery Method: Spontaneous Vaginal Delivery-Twins. Infant Delivery Mode: Spontaneous (Twin A, twin B delivered by vacuum extraction less than 10 seconds in the green outlet [facility]). Presentation: Vertex. Nuchal Cord: Present ( Twin a tight nuchal cord unable to reduce over head or shoulders required cutting before delivery of the head.). Prep: Povidone-Iodine (Betadine. Anesthesia Type: Epidural. Episiotomy Type: None. Laceration: 2nd Degree ( Midline). Suture type: Other (Monocryl). Suture size: 3-0 (Times one). Placenta: Intact, Spontaneous (Monochorionic/diamniotic at 1332 hrs. intact Eugenio discarded). Cord: 3 Vessels (Twin A and twin B). Estimated Blood Loss: 500. Resuscitation Needed: No. : Suctioned, Bulb Syringe, Stimulated, Warmed, [place] Used (Dr. Whitman present and care for twin A and twin B), Warmer Used. Provider: Pito Reed. Score 1 min: 8 (Twin A & B) . Score 5 min: 9 (Twin A & B). Delivery Comments (Free Text/Narrative): : Twin A delivered at 1304 hrs. on Thursday12/19/16 weight 3220 g/7 pounds 1.6 ounces Apgars 8/9 nuchal cord 1 tight. Twin B delivered at 1325 hrs. on Thursday12/19/16 weight 3220 g/7 pounds 1.6 ounces Apgars 8/9 vacuum extraction 1 in the green with Kiwi for less than 10 seconds. Both weights were exactly the same as noted above. - Patient Data. Vitals - Most Recent: Last Vital Signs. Temp. Pulse 76 12/19/16 07:46. Resp 20 12/19/16 07:46. BP 137/83 12/19/16 07:46. Pulse Ox 100 12/19/16 07:46. Weight - Most Recent: 274 lb. Lab Results Last 24 Hours: Laboratory Results - last 24 hr. 12/18/171003/17101710Range/Units. 20:5021:5021:50. WBC 9.43 (3.98-10.04) K/mm3. RBC 3.81 L (3.98-5.22) M/mm3. Hgb 12.1 (11.2-15.7) gm/L. Hct 36.5 (34.1-44.9) %. MCV 95.8 H (79.4-94.8) fl. MCH 31.8 (25.6-32.2) pg. MCHC 33.2 (32.2-35.5) g/ dl. RDW Std Deviation 43.6 (36.4-46.3) fL. Plt Count 223 (182-369) K/mm3. MPV 10.4 (9.4-12.3) fl. POC Glucose 98 (70-105) mg/dL. Blood Type O POSITIVE. Gel Antibody Screen Negative. 12/18/171003/1710Range/Units. 22:4023:4200:39. WBC (3.98-10.04) K/mm3. RBC (3.98-5.22) M/mm3. Hgb (11.2- 15.7) gm/L. Hct (34.1-44.9) %. MCV (79.4-94.8) fl. MCH (25.6-32.2) pg. MCHC (32.2-35.5) g/dl. RDW Std Deviation (36.4-46.3) fL. Plt Count (182-369 ) K/mm3. MPV (9.4-12.3) fl. POC Glucose 85 84 89 (70-105) mg/dL. Blood Type. Gel Antibody Screen. 12/19/171004/1710Range/Units. 01:4802:4404: 26. WBC (3.98-10.04) K/mm3. RBC (3.98-5.22) M/mm3. Hgb (11.2-15.7) gm/L. Hct (34.1-44.9) %. MCV (79.4-94.8) fl. MCH (25.6-32.2) pg. MCHC (32.2-35.5 ) g/dl. RDW Std Deviation (36.4-46.3) fL. Plt Count (182-369) K/mm3. MPV ( 9.4-12.3) fl. POC Glucose 81 84 81 (70-105) mg/dL. Blood Type. Gel Antibody Screen. 12/19/171004/1710Range/Units. 05:0806:1307:20. WBC ( 3.98-10.04) K/mm3. RBC (3.98-5.22) M/mm3. Hgb (11.2-15.7) gm/L. Hct (34.1- 44.9) %. MCV (79.4-94.8) fl. MCH (25.6-32.2) pg. MCHC (32.2-35.5) g/dl. RDW Std Deviation (36.4-46.3) fL. Plt Count (182-369) K/mm3. MPV (9.4-12.3) fl. POC Glucose 81 81 79 (70-105) mg/dL. Blood Type. Gel Antibody Screen. 12/19/171004/1710Range/Units. 08:2209:2310:30. WBC (3.98-10.04) K/ mm3. RBC (3.98-5.22) M/mm3. Hgb (11.2-15.7) gm/L. Hct (34.1-44.9) %. MCV (79.4-94.8) fl. MCH (25.6-32.2) pg. MCHC (32.2-35.5) g/dl. RDW Std Deviation (36.4-46.3) fL. Plt Count (182-369) K/mm3. MPV (9.4-12.3) fl. POC Glucose 88 87 100 (70-105) mg/dL. Blood Type. Gel Antibody Screen. 12/19 /Range/Units. 11:1512:16. WBC (3.98-10.04) K/mm3. RBC (3.98-5.22) M/mm3. Hgb (11.2-15.7) gm/L. Hct (34.1-44.9) %. MCV (79.4-94.8) fl. MCH (25.6-32.2) pg. MCHC (32.2-35.5) g/dl. RDW Std Deviation (36.4-46.3) fL. Plt Count (182-369) K/mm3. MPV (9.4-12.3) fl. POC Glucose 120 H 94 (70- 105) mg/dL. Blood Type. Gel Antibody Screen. Med Orders - Current: Current Medications. Diphenhydramine HCl (Benadryl) 25 mg IVPUSH Q6H PRN. PRN Reason : pruritis. Ephedrine Sulfate (Ephedrine Sulfate) 5 mg IVPUSH ASDIRECTED PRN. PRN Reason: Hypotension. Fentanyl (Sublimaze) 100 mcg EPIDUR Q3H PRN. PRN Reason: Pain. Last Admin: 12/19/16 08:07 Dose: 100 mcg. Fentanyl/Bupivacaine HCl (Fentanyl/Bupivacaine/Ns 2 Mcg-0.125% 100 Ml) 100 ml EPIDUR ASDIRECTED ELHAM. Last Admin: 12/19/16 08:06 Dose: 100 ml. Dextrose/Water (Dextrose 5% In Water) 1,000 mls @ 100 mls/hr IV ASDIRECTED ELHAM. Last Admin: 12/19/16 08:50 Dose: 100 mls/hr. Insulin Human Regular 100 unit (/ Sodium Chloride) 100 mls @ 0.5 mls/hr IV TITRATE ELHAM; 0.5 UNIT/HR. PRN Reason: Protocol. Last Titration : 12/19/16 12:17 Dose: 0.5 unit/hr, 0.5 mls/hr. Lactated Ringer's (Ringers, Lactated) 1,000 mls @ 50 mls/hr IV ASDIRECTED ELHAM. Last Infusion: 12/19/16 08: 31 Dose: 50 mls/hr. Oxytocin 20 unit/ Lactated (Ringer's) 1,002 mls @ 6.01 mls/hr IV TITRATE ELHAM; 2 MUNITS/MIN. PRN Reason: Protocol. Last Titration: 05/02 12:18 Dose: 3 munits/min, 9.01 mls/hr. Nalbuphine HCl (Nubain) 10 mg IVPUSH Q2H PRN. PRN Reason: Pain (moderate 4-6). Ondansetron HCl (Zofran) 4 mg IVPUSH Q4H PRN. PRN Reason: Nausea/Vomiting. Last Admin: 12/19/16 09:27 Dose: 4 mg. Sodium Chloride (Saline Flush) 10 ml FLUSH ASDIRECTED PRN. PRN Reason: Keep Vein Open. Discontinued Medications. Acetaminophen (Tylenol) 650 mg PO NOW ONE. Stop: 12/19/16 12:20. Last Admin: 12/19/16 12:36 Dose: 650 mg. Oxytocin 20 unit/ Lactated (Ringer's) 1,002 mls @ 500 mls/hr IV ASDIRECTED ONE. Stop: 12/18/16 21:00. Insulin Glargine (Lantus Solostar) 12 units SUBCUT ONETIME ONE. Stop: 12/18/16 22:01. Last Admin: 12/18/16 22:05 Dose: 12 unit. Lidocaine HCl (Xylocaine 1%) 50 ml INJECT ONETIME ONE. Stop: 12/19/16 00:01. Misoprostol (Cytotec) 25 mcg VAG Q3H ELHAM. Stop: 12/19/16 06: 01. Last Admin: 12/19/16 06:17 Dose: 25 mcg. - Problem List & Annotations. ( 1) 36 weeks gestation of . SNOMED Code(s): 67403578. Code(s): Z3A.36 - 36 WEEKS GESTATION OF Status: Acute Current Visit: No. (2) Gestational diabetes mellitus in . SNOMED Code(s): 68844815. Code(s) : O24.419 - GESTATIONAL DIABETES MELLITUS IN , UNSP CONTROL Status: Acute Current Visit: No. Qualifiers: Gestational diabetes mellitus control: diet-controlled Trimester: third trimester Qualified Code(s): O24.410 - Gestational diabetes mellitus in , diet controlled. (3) Gestational hypertension affecting second . SNOMED Code(s): 17126758. Code(s): O13.9 - GESTATIONAL HTN W/O SIGNIFICANT PROTEINURIA, UNSP TRIMESTER; O09.40 - SUPERVISION OF W GRAND MULTIPARITY, UNSP TRIMESTER Status: Acute Current Visit: No. (4) Monochorionic diamniotic twin in third trimester. SNOMED Code(s): 230448738. Code(s): O30.033 - TWIN , MONOCHORIONIC/DIAMNIOTIC, THIRD TRIMESTER Status: Acute Current Visit: No. (5) Nuchal cord with compression, delivered, current hospitalization. SNOMED Code(s): 198463085. Code(s): O69.1XX0 - LABOR AND DELIVERY COMP BY CORD AROUND NECK, W COMPRSN, UNSP Status: Acute Current Visit: Yes. - Problem List Review. Problem List Initiated/Reviewed/Updated: No. - My Orders. Last 24 Hours: My Active Orders. 12/18/16 17:34. Resuscitation Status Routine. 12/18 19:00. Patient Status [ADT] Routine. Activity as Tolerated [RC] PFP. Blood Glucose Check, Bedside [RC] Q1HR. Communication Order [RC] ASDIRECTED. Notify Provider [RC] PFP. Notify Provider [RC] PRN. Peripheral IV Care [RC] . DIRECTED. Vital Signs [RC] PER UNIT ROUTINE. Dextrose 5% in Water 1,000 ml IV ASDIRECTED. Insulin Regular, Human [HumuLIN R] 100 unit Sodium Chloride 0.9% [Normal Saline] 99 ml IV TITRATE. Lactated Ringers [Ringers, Lactated] 1,000 ml IV ASDIRECTED. Nalbuphine [Nubain] 10 mg IVPUSH Q2H PRN. Ondansetron [Zofran] 4 mg IVPUSH Q4H PRN. Sodium Chloride 0.9% [Saline Flush ] 10 ml FLUSH ASDIRECTED PRN. Electronic Heart Tones Ext w TOCO [WOMSER ] Routine. Electronic Heart Tones Internal [WOMSER] Per Unit Routine. Peripheral IV Insertion Adult [OM.PC] Routine. 12/19/16 09:00. Oxytocin [ Pitocin] 20 unit Lactated Ringers [Ringers, Lactated] 1,000 ml IV TITRATE. Breakfast. Clear Liquid Diet [DIET]. - Plan. Plan:: Admitted for medically indicated induction monochorionic/diamnionic twins - Discharge Data Discharge Date: 12/21/16 Discharge Disposition: Home, Self-Care 01 Condition: Good - Discharge Diagnosis/Problem(s) (1) 36 weeks gestation of SNOMED Code(s): 95047646 ICD Code: Z3A.36 - 36 WEEKS GESTATION OF Status: Acute Current Visit: No (2) Gestational diabetes mellitus in SNOMED Code(s): 23188948 ICD Code: O24.419 - GESTATIONAL DIABETES MELLITUS IN , UNSP CONTROL Status: Acute Current Visit: No Qualifiers: Gestational diabetes mellitus control: diet-controlled Trimester: third trimester Qualified Code(s): O24.410 - Gestational diabetes mellitus in , diet controlled (3) Gestational hypertension affecting second SNOMED Code(s): 50767663 ICD Code: O13.9 - GESTATIONAL HTN W/O SIGNIFICANT PROTEINURIA, UNSP TRIMESTER ; O09.40 - SUPERVISION OF W GRAND MULTIPARITY, UNSP TRIMESTER Status : Acute Current Visit: No (4) Monochorionic diamniotic twin in third trimester SNOMED Code(s): 229667919 ICD Code: O30.033 - TWIN , MONOCHORIONIC/DIAMNIOTIC, THIRD TRIMESTER Status: Acute Current Visit: No (5) Nuchal cord with compression, delivered, current hospitalization SNOMED Code(s): 179323594 ICD Code: O69.1XX0 - LABOR AND DELIVERY COMP BY CORD AROUND NECK, W COMPRSN, UNSP Status: Acute Current Visit: Yes (6) Second degree laceration of perineum, delivered, current hospitalization SNOMED Code(s): 145328946 ICD Code: O70.1 - SECOND DEGREE PERINEAL LACERATION DURING DELIVERY Status : Acute Current Visit: Yes - Patient Summary/Data Complications: None Consults: None Hospital Course: Uneventful - Patient Instructions Diet: Regular Diet as Tolerated Driving: Do Not Drive (M's 48 hours) Showering/Bathing: May Shower Notify Provider of: Fever, Increased Pain, Swelling and Redness, Drainage, Nausea and/or Vomiting - Discharge Plan Home Medications: Home Meds Vit No.124/Iron/FA [ Vitamin Tablet] 1 each PO DAILY 07/01/15 [ History] Acetaminophen [Tylenol] 650 mg PO Q4H PRN #0 tablet 07/02/15 [Rx] Nitrofurantoin Monohyd/M-Cryst [Macrobid 100 mg Capsule] 100 mg PO BID #20 capsule 12/08/16 [Rx] Loratadine/Pseudoephedrine [Claritin-D 24 Hour Tablet] 1 each PO 12/17/16 [ History] Omeprazole Magnesium [Prilosec Otc] 20 mg PO 12/17/16 [History] Acetaminophen [Tylenol] 650 mg PO Q6H PRN tablet 12/21/16 [Rx] Benzocaine/Menthol [Dermoplast Pain Relief [place]] 1 spray TOP ASDIRECTED PRN canister 12/21/16 [Rx] Docusate Sodium [Colace] 100 mg PO BID PRN cap 12/21/16 [Rx] Ibuprofen [IJD: Ibuprofen] 600 mg PO Q6H PRN tablet 12/21/16 [Rx] Lanolin [Lansinoh HPA] 1 applic TOP ASDIRECTED PRN tube 12/21/16 [Rx] Patient Handouts: Home Care Instructions for Mom, Twins or Multiples - Discharge Summary/Plan Comment DC Time >30 min.: No - Patient Data Vitals - Most Recent: Last Vital Signs Temp 98.1 F 12/21/16 06:12 Pulse 92 12/21/16 06:12 Resp 18 12/21/16 06:12 BP 129/88 12/21/16 06:15 Pulse Ox 94 L 12/21/16 06:12 Weight - Most Recent: 274 lb I&O - Last 24 hours: Intake & Output 12/20/16 12/21/16 12/21/16 23:59 06:59 14:59 Intake Total Balance Med Orders - Current: Current Medications Acetaminophen (Tylenol) 650 mg PO Q4H PRN PRN Reason: mild pain or fever Benzocaine/Menthol (Dermoplast Pain Relief [place]) 0 gm TOP ASDIRECTED PRN PRN Reason: Perineal Comfort Measure Last Admin: 12/19/16 18:44 Dose: 56 gm Docusate Sodium (Colace) 100 mg PO BID PRN PRN Reason: Constipation Last Admin: 12/21/16 01:27 MDT Dose: 100 mg Emollient Ointment (Lansinoh Hpa) 0 gm TOP ASDIRECTED PRN PRN Reason: Sore Nipples Ibuprofen (Motrin) 600 mg PO Q4H PRN PRN Reason: Mild pain or fever Last Admin: 12/20/16 15:20 Dose: 600 mg Loratadine (Claritin) 10 mg PO DAILY PRN PRN Reason: Congestion Oxycodone/Acetaminophen (Percocet 325-5 Mg) 2 tab PO Q4H PRN PRN Reason: Pain (moderate 4-6) Last Admin: 12/21/16 04:42 Dose: 2 tab Prenat Multivit/Cut Off Operator Scorer/Iron/Folic Ac ( Plus Iron) 1 each PO DAILY ELHAM Last Admin: 12/20/16 08:31 Dose: 1 each Pseudoephedrine HCl (Sudogest) 120 mg PO DAILY PRN PRN Reason: CONGESTION Witch Ani (Tucks) 1 pad TOP ASDIRECTED PRN PRN Reason: Hemorrhoid pain Last Admin: 12/19/16 18:44 Dose: 1 pad Discontinued Medications Acetaminophen (Tylenol) 650 mg PO NOW ONE Stop: 12/19/16 12:20 Last Admin: 12/19/16 12:36 Dose: 650 mg Diphenhydramine HCl (Benadryl) 25 mg IVPUSH Q6H PRN PRN Reason: pruritis Ephedrine Sulfate (Ephedrine Sulfate) 5 mg IVPUSH ASDIRECTED PRN PRN Reason: Hypotension Fentanyl (Sublimaze) 100 mcg EPIDUR Q3H PRN PRN Reason: Pain Last Admin: 12/19/16 08:07 Dose: 100 mcg Fentanyl/Bupivacaine HCl (Fentanyl/Bupivacaine/Ns 2 Mcg-0.125% 100 Ml) 100 ml EPIDUR ASDIRECTED ELHAM Last Admin: 12/19/16 08:06 Dose: 100 ml Dextrose/Water (Dextrose 5% In Water) 1,000 mls @ 100 mls/hr IV ASDIRECTED ELHAM Last Admin: 12/19/16 08:50 Dose: 100 mls/hr Insulin Human Regular 100 unit (/ Sodium Chloride) 100 mls @ 0.5 mls/hr IV TITRATE ELHAM; 0.5 UNIT/HR PRN Reason: Protocol Last Titration: 12/19/16 12:17 Dose: 0.5 unit/hr, 0.5 mls/hr Lactated Ringer's (Ringers, Lactated) 1,000 mls @ 50 mls/hr IV ASDIRECTED ELHAM Last Infusion: 12/19/16 08:31 Dose: 50 mls/hr Oxytocin 20 unit/ Lactated (Ringer's) 1,002 mls @ 6.01 mls/hr IV TITRATE ELHAM; 2 MUNITS/MIN PRN Reason: Protocol Last Titration: 12/19/16 13:35 Dose: 500 mls/hr Oxytocin 20 unit/ Lactated (Ringer's) 1,002 mls @ 500 mls/hr IV ASDIRECTED ONE Stop: 12/18/16 21:00 Last Admin: 12/19/16 18:45 Dose: Not Given Insulin Glargine (Lantus Solostar) 12 units SUBCUT ONETIME ONE Stop: 12/18/16 22:01 Last Admin: 12/18/16 22:05 Dose: 12 unit Lidocaine HCl (Xylocaine 1%) 50 ml INJECT ONETIME ONE Stop: 12/19/16 00:01 Last Admin: 12/19/16 18:45 Dose: Not Given Misoprostol (Cytotec) 25 mcg VAG Q3H ELHAM Stop: 12/19/16 06:01 Last Admin: 12/19/16 06:17 Dose: 25 mcg Nalbuphine HCl (Nubain) 10 mg IVPUSH Q2H PRN PRN Reason: Pain (moderate 4-6) Ondansetron HCl (Zofran) 4 mg IVPUSH Q4H PRN PRN Reason: Nausea/Vomiting Last Admin: 12/19/16 09:27 Dose: 4 mg Sodium Chloride (Saline Flush) 10 ml FLUSH ASDIRECTED PRN PRN Reason: Keep Vein Open *Q Meaningful Use (DIS) - VTE *Q VTE Criteria *Q: - Stroke *Q Stroke Criteria *Q: - AMI *Q AMI Criteria *Q:
[2016-12-21 12:04] VITALS: BP 137/73
[2016-12-21] MEDS: Prenatal Multivitamin with Calcium/Folic Acid/Iron Tab PO SCH (12:04)
== END 2016-12-21 12:00 | disposition home or self-care (01) | DRG 775 ==
LOC: JD.OB 13:04 → OBSVTOIN 12-19 13:04
PROVIDERS: ADMIT Obstetrics & Gynecology; ATTEND Obstetrics & Gynecology
PROC: 10D07Z6 Extraction of Products of Conception, Vacuum, Via Natural or Artificial Opening (ICD-10-PCS; principal; 2016-12-19)
PROC: 0KQM0ZZ Repair Perineum Muscle, Open Approach (ICD-10-PCS; 2016-12-19)
PROC: 10907ZC Drainage of Amniotic Fluid, Therapeutic from Products of Conception, Via Natural or Artificial Opening (ICD-10-PCS; 2016-12-19)
PROC: 00HU33Z Insertion of Infusion Device into Spinal Canal, Percutaneous Approach (ICD-10-PCS; 2016-12-19)
PROC: 3E0R3BZ Introduction of Anesthetic Agent into Spinal Canal, Percutaneous Approach (ICD-10-PCS; 2016-12-19)
DX: O30.033 Twin pregnancy, monochorionic/diamniotic, third trimester (principal); Z37.2 Twins, both liveborn; O13.4 Gestational [pregnancy-induced] hypertension without significant proteinuria, complicating childbirth; Z3A.36 36 weeks gestation of pregnancy; O24.410 Gestational diabetes mellitus in pregnancy, diet controlled; O69.81X1 Labor and delivery complicated by cord around neck, without compression, fetus 1; Z88.0 Allergy status to penicillin; Z88.1 Allergy status to other antibiotic agents; Z88.2 Allergy status to sulfonamides; O70.1 Second degree perineal laceration during delivery
CPT/HCPCS: 36415; 51702; 59300; 59409; 82962; 85025; 85027; 86850; 86900; 86901; A9270-GY; J2405; J2590; J3010; J7060; J7120